=== PATIENT | male | born 1990 | race Caucasian/White ===

== ENCOUNTER 2018-09-07 19:25 | Emergency (ER) | payer BC ==
[~2018-09-07] VITALS: Ht 170.2 cm; Wt 69.0 kg
[2018-09-07] MEDS ORDERED: IBUPROFEN 600MG TABLET PO STA (20:13)
[2018-09-07] MEDS ORDERED: BACITRACIN ZINC OINT UDPKT TOP ONE (20:15)
[2018-09-07 22:08] VITALS: BP 127/77
== END 2018-09-07 22:09 | disposition home or self-care (01) ==
LOC: ER 19:25
DX: S43.101A Unspecified dislocation of right acromioclavicular joint, initial encounter (principal); S00.83XA Contusion of other part of head, initial encounter; S10.91XA Abrasion of unspecified part of neck, initial encounter; F12.10 Cannabis abuse, uncomplicated; F17.200 Nicotine dependence, unspecified, uncomplicated; V19.88XA Pedal cyclist (driver) (passenger) injured in other specified transport accidents, initial encounter; Y93.89 Activity, other specified; Y92.89 Other specified places as the place of occurrence of the external cause; Y99.8 Other external cause status
CPT/HCPCS: 73030; 99284